=== PATIENT | male | born 1985 | race Caucasian/White ===

== ENCOUNTER 2017-02-27 00:34 | Inpatient (IN) | payer OTHER ==
[~2017-02-27] VITALS: Ht 175.3 cm; Wt 185.1 kg
--- NOTE | ~2017-02-27 | EKG ---
[address] [place] [address] ELECTROCARDIOGRAM REPORT Name: TRACE SUNSHINE Room #: 358-P [facility] IN M.R.#: [id number] Admission: 02/27/17 Attend Phys: Ranjit Marin Discharge: 02/27/17 Date of : 81 Report #: [id number] THIS REPORT FOR: //name// [facility] ED Test Date: 2017-02-27 Test Time: 01:10:18 Pat Name: TRACE SUNSHINE Department: Room: 358 Gender: M Ceramic Tiler: OWEN : 1985 Requested By: Jeovanny Bales Order Number: [id number] MD: Anders Bruce Measurements Intervals [place] Rate: 88 P: 2 [place]: 133 QRS: 0 QRSD: 134 T: 24 QT: 388 QTc: 470 Interpretive Statements Sinus rhythm IVCD No previous ECG available for comparison Electronically Signed On 02-27-2017 14:24:40 [employer] by Anders Bruce [email or web address] <ELECTRONICALLY SIGNED> By: Anders Bruce MD, [facility] 02/27/17 1424 0110 0110 Anders Bruce MD, FACC /EPI
[~2017-02-27 00:34] MED LIST: AMOXICILLIN 50500 MG PO; AMOXICILLIN875 MG PO; ANUSOL-HC25 MG RECTAL; BACTROBAN CREAM30 G1 TOP; CELEXA20 MG PO; CEPHALEXIN 500500 M3 PO; CORTISPORIN OTI10 M2 OTIC; HYDROCODONE-AP1 EAC6 PO; IBUPROFEN 200200 M1; IBUPROFEN 800800 M1 PO; KEFLEX500 MG PO; METFORMIN HCL500 MG PO; MIRALAX17 GM PO; NEXIUM40 MG PO; NOHOMEMEDICATIONS; NORCO 5-325 TA1 EACH PO; NYSTATIN 100,0015 G1 TP; PAXIL10 MG PO; PENICILLIN V P500 MG PO; PHENERGAN 25 MG25 M1 PO; PREDNISONE 20 M20 M1 PO; PRILOSEC 20 MG20 MG PO; PROMETHAZINE12.5 M1 PO; TORADOL 10 MG T10 MG PO; ULTRAM 50MG TAB50 MG PO; ZANTAC 150MG T150 M1 PO; ZOFRAN ODT4 MG PO; ZOFRAN4 MG PO; ZPAK PO
[2017-02-27 00:42] VITALS: BP 155/93
[2017-02-27] MEDS ORDERED: PAXIL10 MG PO (00:47)
[2017-02-27] MEDS ORDERED: LISINOPRIL-HCT1 EACH PO (00:48)
[2017-02-27 01:20] LABS: ABSOLUTE NEUTROPHILS 4.6 thou/uL (1.4-8.2); BASOPHILS 0.8 % (0.0-2.0); EOSINOPHILS 2.1 % (0.0-3.0); HEMATOCRIT 30.9 % (42.0-52.0); HEMOGLOBIN 10.4 gm/dL (14.0-18.0); LYMPHOCYTES 24.6 % (24.0-44.0); MCH 29.2 pg (26.0-34.0); MCHC 33.6 g/dL (28.0-37.0); MCV 87.1 fL (80.0-100.0); MONOCYTES 11.4 % (1.0-8.0); PLATELET COUNT 213 thou/uL (150-400); POLYS 61.1 % (36.0-66.0); RBC 3.55 mil/uL (4.50-6.00); RDW 15.3 % (10.5-14.5); WBC 7.6 thou/uL (4.0-11.0)
[2017-02-27 01:21] LABS: MANUAL DIFF NO
[2017-02-27 01:24] LABS: ANION GAP 8 mmol/L (7-16); BUN 13 mg/dL (7-18); CALCIUM 8.7 mg/dL (8.5-10.1); CHLORIDE 102 mmol/L (98-107); CO2 27 mmol/L (21-32); CREATININE 0.7 mg/dL (0.7-1.3); GLUCOSE 120 mg/dL (74-106); POTASSIUM 4.3 mmol/L (3.5-5.1); SODIUM 137 mmol/L (136-145)
[2017-02-27 01:32] LABS: ALBUMIN 2.7 g/dL (3.4-5.0); ALKALINE PHOSPHATASE 81 U/L (46-116); MAGNESIUM 1.9 mg/dL (1.8-2.4); SGOT 54 U/L (15-37); SGPT 38 U/L (30-65); TOTAL BILIRUBIN 0.3 mg/dL (<0.1-1.0); TOTAL PROTEIN 8.2 g/dL (6.4-8.2); TROPONIN-I < 0.04 ng/mL (<0.06)
[2017-02-27 01:43] LABS: APTT 23.5 Seconds (24.5-32.8); PROTIME 10.7 Seconds (9.3-11.4)
[2017-02-27 02:01] LABS: URINE BILIRUBIN NEGATIVE (Negative); URINE BLOOD TRACE (Negative); URINE COLOR YELLOW; URINE GLUCOSE-RANDOM* NEGATIVE (Negative); URINE KETONES NEGATIVE (Negative); URINE LEUKOCYTES-REFLEX NEGATIVE (Negative); URINE PROTEIN (DIPSTICK) NEGATIVE (Negative); URINE UROBILINOGEN 0.2 E.U./dl (0.2-1.0)
[2017-02-27 03:50] VITALS: BP 113/60
[2017-02-27 08:58] VITALS: BP 133/69
[2017-02-27 12:02] VITALS: BP 133/69
[2017-03-01] MEDS ORDERED: DOXYCYCLINE 10100 MG PO (09:59)
[2017-03-01] MEDS ORDERED: OXYCODONE HCL 55 MG PO (09:59)
== END 2017-02-27 12:10 | disposition home or self-care (01) | DRG 378 ==
LOC: ER 00:34 → EROBS 02:14 → 3W 03:51
PROVIDERS: Emergency Medicine
DX: K92.2 Gastrointestinal hemorrhage, unspecified (principal); Z68.44 Body mass index [BMI] 60.0-69.9, adult; D63.8 Anemia in other chronic diseases classified elsewhere; F32.9 Major depressive disorder, single episode, unspecified; K21.9 Gastro-esophageal reflux disease without esophagitis; G47.33 Obstructive sleep apnea (adult) (pediatric); E66.01 Morbid (severe) obesity due to excess calories; E10.9 Type 1 diabetes mellitus without complications; D64.9 Anemia, unspecified
CPT/HCPCS: 10779

== ENCOUNTER 2017-03-30 22:24 | Emergency (ER) | payer OTHER ==
[~2017-03-30] VITALS: Ht 175.3 cm; Wt 181.4 kg
[~2017-03-30 22:24] MED LIST changes: +DOXYCYCLINE 10100 MG PO; +LISINOPRIL-HCT1 EACH PO; +OXYCODONE HCL 55 MG PO; +PROMS25 WY RECTAL
[2017-03-30] MEDS ORDERED: PROAIR HFA8.5 GM INH (22:50)
[2017-03-30] MEDS ORDERED: TESSALON PERLE100 MG PO (22:50)
== END 2017-03-30 23:35 | disposition home or self-care (01) ==
LOC: ER 22:24
DX: J06.9 Acute upper respiratory infection, unspecified (principal); E10.9 Type 1 diabetes mellitus without complications; F32.9 Major depressive disorder, single episode, unspecified; K21.9 Gastro-esophageal reflux disease without esophagitis; G47.30 Sleep apnea, unspecified; Z86.2 Personal history of diseases of the blood and blood-forming organs and certain disorders involving the immune mechanism

== ENCOUNTER 2017-04-24 12:11 | Emergency (ER) | payer OTHER ==
[~2017-04-24] VITALS: Ht 175.3 cm; Wt 181.0 kg
[~2017-04-24 12:11] MED LIST changes: +PROAIR HFA8.5 GM INH; +TESSALON PERLE100 MG PO
[2017-04-24] MEDS ORDERED: GUAIFENESIN-CODE5 ML PO (12:56)
[2017-04-24 13:54] VITALS: BP 160/85
== END 2017-04-24 13:16 | disposition home or self-care (01) ==
LOC: ER 12:11
DX: J06.9 Acute upper respiratory infection, unspecified (principal); E10.8 Type 1 diabetes mellitus with unspecified complications; F32.9 Major depressive disorder, single episode, unspecified; K21.9 Gastro-esophageal reflux disease without esophagitis